=== PATIENT | female | born 1955 | race Caucasian/White ===

== ENCOUNTER 2017-10-17 01:40 | Emergency (ER) | payer BC ==
[~2017-10-17] VITALS: Ht 162.6 cm; Wt 59.4 kg
[2017-10-17 02:26] LABS: HEMATOCRIT 43.5 % (34.6-47.8); HEMOGLOBIN 14.5 g/dL (11.7-16.4); WHITE BLOOD COUNT 9.8 x10^3/uL (3.4-10)
[2017-10-17 02:28] LABS: ASPARTATE AMINO TRANSFERASE 13 U/L (15-37); BLOOD UREA NITROGEN 20 mg/dL (7-18)
[2017-10-17] MEDS ORDERED: SODIUM CHLORIDE FLUSH 10ML SYR IVF ONE (02:30)
[2017-10-17] MEDS ORDERED: KETOROLAC 30 MG/1 ML IVPush ONE (02:30)
[2017-10-17] MEDS ORDERED: KETOROLAC 30 MG/1 ML ONE (02:37)
[2017-10-17 03:43] VITALS: BP 138/78
== END 2017-10-17 04:45 | disposition home or self-care (01) ==
LOC: ED 02:47
DX: K80.70 Calculus of gallbladder and bile duct without cholecystitis without obstruction (principal)
CPT/HCPCS: 36415; 76700; 80053; 81001; 83690; 85025; 87086; 96374; 99285; J1885

== ENCOUNTER 2017-12-06 05:58 | Day surgery (SDC) | payer BC ==
[~2017-12-06] VITALS: Ht 163.8 cm; Wt 56.4 kg
[~2017-12-06 05:58] MED LIST: CHOL2000 PO; GLUC1CAP18 PO; MULT-717 PO
[2017-12-06] MEDS ORDERED: BUPIVACAINE/PF 0.5% ONE (06:00)
[2017-12-06] MEDS ORDERED: EPINEPHRINE 1 MG/ML, 1ML ONE (06:00)
[2017-12-06 06:23] VITALS: BP 132/82
[2017-12-06] MEDS ORDERED: LACTATED RINGERS 1,000 ML IV SCH (06:27)
[2017-12-06] MEDS ORDERED: MIDAZOLAM 1 MG/ML, 2ML ONE (06:57)
[2017-12-06] MEDS ORDERED: FENTANYL PF 100 MCG/2ML ONE ×2 (06:57→08:13)
[2017-12-06] MEDS ORDERED: LIDOCAINE GEL 2%, 5ML ONE (06:59)
[2017-12-06] MEDS ORDERED: LIDOCAINE-MPF 2% ,5ML ONE (07:18)
[2017-12-06] MEDS ORDERED: SUCCINYLCHOLINE 20 MG/ML, 10ML ONE (07:18)
[2017-12-06] MEDS ORDERED: DEXAMETHASONE 4 MG/ML, 1ML ONE (07:18)
[2017-12-06] MEDS ORDERED: GLYCOPYRROLATE 0.2MG/1ML, 5ML ONE (07:18)
[2017-12-06] MEDS ORDERED: CEFAZOLIN 1,000 MG ONE (07:18)
[2017-12-06] MEDS ORDERED: ONDANSETRON 2MG/ML, 2ML ONE (07:18)
[2017-12-06] MEDS ORDERED: NEOSTIGMINE 1 MG/ML, 10ML ONE (07:18)
[2017-12-06] MEDS ORDERED: ROCURONIUM 10 MG/ML,10ML ONE (07:18)
[2017-12-06] MEDS ORDERED: PROPOFOL 10 MG/ML, 20ML ONE (07:18)
[2017-12-06] MEDS ORDERED: LORazepam 2 MG/ML, 1ML IVPush PRN (08:00)
[2017-12-06] MEDS ORDERED: PROMETHAZINE 12.5 MG SUPP PR PRN (08:00)
[2017-12-06] MEDS ORDERED: OXYcodone 5 MG/5 ML ORAL.SOL UDC PO PRN (08:00)
[2017-12-06] MEDS ORDERED: ALBUTEROL/IPRATROPIUM 2.5MG/0.5MG, 3 ML NPPB PRN (08:00)
[2017-12-06] MEDS ORDERED: MIDAZOLAM 1 MG/ML, 2ML IV PRN (08:00)
[2017-12-06] MEDS ORDERED: LABETALOL 5MG/ML, 20ML IV PRN (08:00)
[2017-12-06] MEDS ORDERED: hydrALAzine 20 MG/ML, 1ML IV PRN (08:00)
[2017-12-06] MEDS ORDERED: ACETAMINOPHEN 325 MG TABLET PO PRN (08:00)
[2017-12-06] MEDS ORDERED: DIAZEPAM 5 MG/ML, 2ML IVPush PRN (08:00)
[2017-12-06] MEDS ORDERED: ONDANSETRON 2MG/ML, 2ML IVPush PRN (08:00)
[2017-12-06] MEDS ORDERED: HYDROmorphone 1 MG/ML, 1ML IV PRN (08:00)
[2017-12-06] MEDS ORDERED: MEPERIDINE/PF 25MG/0.5ML IVPush PRN (08:00)
[2017-12-06] MEDS ORDERED: ACETAMINOPHEN 650 MG/20.3 ML UDC ONE (08:12)
[2017-12-06] MEDS ORDERED: OXYcodone 5 MG/5 ML ORAL.SOL UDC ONE (08:13)
[2017-12-06] MEDS: FENTANYL PF 100 MCG/2ML IV PRN ×2 (08:21→08:34)
== END 2017-12-06 10:55 ==
LOC: OUT 05:58
PROVIDERS: ATTEND Surgery
DX: K80.10 Calculus of gallbladder with chronic cholecystitis without obstruction (principal); E78.00 Pure hypercholesterolemia, unspecified; E89.0 Postprocedural hypothyroidism; Z87.39 Personal history of other diseases of the musculoskeletal system and connective tissue; Z90.710 Acquired absence of both cervix and uterus; Z98.890 Other specified postprocedural states; Z72.89 Other problems related to lifestyle; Z87.891 Personal history of nicotine dependence
CPT/HCPCS: 47562; 88304; C1729; C1760; J0171; J0330; J0690; J1100; J2250; J2405; J2704; J2710; J3010; J3490; J7120

== ENCOUNTER 2019-03-06 10:06 | Outpatient (CLI) | payer MEDICARE, OTHER | END 2019-03-06 23:59 | disposition home or self-care (01) | LOC: CFH 10:06 | PROVIDERS: ATTEND Family Medicine | DX: Z12.31 Encounter for screening mammogram for malignant neoplasm of breast (principal) | CPT/HCPCS: 77067 ==

== ENCOUNTER → 2019-10-27 | Outpatient (CLI) | payer MEDICARE | END | disposition home or self-care (01) | LOC: CVU 14:17 | PROVIDERS: ATTEND Internal Medicine Cardiovascular Disease | DX: R42 Dizziness and giddiness (principal); Z82.49 Family history of ischemic heart disease and other diseases of the circulatory system | CPT/HCPCS: 93880 ==